=== PATIENT | female | born 1975 | race Caucasian/White ===

== ENCOUNTER 2023-10-17 13:06 | Emergency (ER) | payer OTHER, SELFPAY ==
[2023-10-17 13:10] VITALS: BP 116/80
[2023-10-17 13:25] VITALS: BMI 27.4
--- NOTE | 2023-10-17 13:28 | ED.SKININJ ---
HPI-Injury
General
Chief Complaint: Skin Problem
Source: patient
Exam Limitations: none
Time Seen by Provider: 10/17/23 13:21
Nursing documentation reviewed up to this point in time: agreed with
History of Present Illness-Injury
Is this injury a work related problem?: No
Is pt an associate of [facility]/Energy?: No
Initial Injury comments:
Patient to ED with complaint of poison huan to face, arms, legs, trunk x 24 hours. States OTC meds never work for her. Brought self to ED for eval.
Past History
Past History
ED Past Medical History: None
ED Past Surgical History: None
Social History
Tobacco: Non-smoker
Review of Systems
Review of Systems
Allergies reviewed?: Yes
All Other Systems: ROS reviewed and negative except as documented in HPI and ROS
Constitutional: Reports no symptoms
Musculoskeletal: Reports no symptoms
Skin: Reports other (generalized poison huan)
Neurological: Reports no symptoms
Psychiatric: Reports no symptoms
Phy Exam
General Physical Exam
General Presentation: well appearing and no apparent distress
General age: appears stated age
General Skin: warm and dry
General Habitus: normal
Musculoskeletal Exam
Musculoskeletal Exam: full ROM
Skin Exam
Skin Exam: other (pruritic vesicles in linear presentation to face, trunk arms and legs consistent with contact dermatitis)
Psychiatric Exam
Psychiatric Exam: normal mood/affect
Course
Orders/Labs/Results
Orders:
Orders
10/17/23 13:26
Dexamethasone Pf [Decadron] 10 mg PO NOW STA
Vital Signs
Initial and Last Documented VS:
Initial Vital Signs
Temp Pulse Resp BP Pulse Ox
99.6 F 89 18 116/80 98
10/17/23 13:10 10/17/23 13:10 10/17/23 13:10 10/17/23 13:10 10/17/23 13:10
Last Documented Vital Signs
Temp Pulse Resp BP Pulse Ox
99.6 F 89 18 116/80 98
10/17/23 13:10 10/17/23 13:10 10/17/23 13:10 10/17/23 13:10 10/17/23 13:10
*Critical Care Note
Total Time (30-74mins, 75-104mins- exclusive of procedures): Not Applicable
ED Attending Note
-
Portions of this chart may have been created with voice recognition software.� Occasional wrong word or��sound alike� substitutions may have occurred due to the inherent limitations of voice recognition software.
Discharge Plan
Departure
Patient Disposition: Home (Routine Discharge)
Date of Disposition: 10/17/23
Time of Disposition: 13:26
Patient with high blood pressure during this ER visit?: No
Condition: Good
Covid-19: Not Applicable
Discharge Problem:
Contact dermatitis
Instructions: Contact dermatitis
Prescriptions:
New
prednisone 10 mg Tablet
See Rx Instructions .ROUTE .COMPLEX Qty: 30 0RF
Rx Instructions:
Take By Mouth:
40 mg daily x3 days, 30 mg daily x3 days,
20 mg daily x3 days, 10 mg daily x3 days.
No Action
fluconazole 200 MG tablet
400 mg PO DAILY Qty: 42 0RF
hydroxyzine pamoate [Vistaril] 25 MG capsule
25 mg PO Q6H PRN (Reason: itching) Qty: 30 0RF
celecoxib 100 MG capsule
100 mg PO BID Qty: 14 0RF
Activity Restrictions/Additional Instructions:
Follow up with your family doctor
Interventions
Interventions:
*Risk Screen - Suicide Last Done: 10/17/23 13:24
*General Assessment Last Done: 10/17/23 13:25
*Neglect/Abuse Screening Last Done: 10/17/23 13:24
ED- Fall Risk Assessment Last Done: 10/17/23 13:26
*ED COVID-19 Vaccine History Last Done: 10/17/23 13:25
ED-Skin Assessment Last Done: 10/17/23 13:24
Discharge Date and Time
Print Language: [id number]
[2023-10-17] MEDS: DECADRON 10 MG PO (13:34)
== END 2023-10-17 13:39 | disposition home or self-care (01) ==
LOC: EMR 13:06
PROVIDERS: EMERGENCY PHYSICIAN Emergency Medicine
DX: L25.9 Unspecified contact dermatitis, unspecified cause (principal)
CPT/HCPCS: 99283

== ENCOUNTER 2023-10-23 16:28 | Emergency (ER) | payer OTHER, SELFPAY ==
[2023-10-23 16:40] VITALS: BP 111/78
[2023-10-23 16:57] LABS: % Basophils 0.7 % (0-2); % Eosinophils 1.6 % (0-6); % Immature Granulocytes 0.3 % (0-0.5); % Lymphocytes 29.2 % (20.5-51.1); % Monocytes 5.6 % (1.7-9.3); % Neutrophils 62.6 % (42.2-75.2); Absolute Basophils 0.1 10^3/uL (0-0.2); Absolute Eosinophils 0.2 10^3/uL (0-0.7); Absolute Lymphocytes 3.4 10^3/uL (1.2-3.4); Absolute Monocytes 0.7 10^3/uL (0.1-0.6); Absolute Neutrophils 7.4 10^3/uL (1.4-6.5); Hematocrit 40.9 % (37.0-47.0); Hemoglobin 14.6 g/dL (12.0-16.0); Mean Corp Hgb Conc. 35.7 g/dL (33.0-37.0); Mean Corpuscular Hgb 31.9 pg (27.0-31.0); Mean Corpuscular Volume 89.5 fL (81.0-99.0); Mean Platelet Volume 9.2 fL (7.4-10.4); Nucleated Red Blood Cells % 0 %; Platelet Count 260 10^3/uL (130-400); Red Blood Cell Count 4.57 10^6/uL (4.20-5.40); White Blood Cell Count 11.8 10^3/uL (4.8-10.8)
[2023-10-23 17:09] LABS: APTT 23.3 Sec (23.4-35.0)
[2023-10-23 17:18] LABS: ALT (SGPT) 23 U/L (0-35); AST (SGOT) 24 U/L (14-36); Albumin 4.7 g/dl (3.5-5.0); Alkaline Phosphatase 49 U/L (38-126); Blood Urea Nitrogen 18 mg/dl (7-17); Calcium 9.9 mg/dl (8.4-10.2); Carbon Dioxide 23 mmol/L (22-30); Chloride 104 mmol/L (98-107); Glucose 103 mg/dl (70-99); Potassium 3.7 mmol/L (3.5-5.1); Sodium 137 mmol/L (135-145); Total Protein 7.1 g/dl (6.3-8.2); eGFR > 60.00
[2023-10-23 17:34] VITALS: BMI 28.2
[2023-10-23 18:27] VITALS: BP 97/72
[2023-10-23 19:00] VITALS: BP 113/71
--- NOTE | 2023-10-23 19:27 | ED.GENMED ---
History of Present Illness
General
Chief Complaint: Extremity Pain (non-traumatic)
Source: patient
Exam Limitations: none
Time Seen by Provider: 10/23/23 17:17
Nursing documentation reviewed up to this point in time: agreed with
History of Present Illness
History of Present Illness:
47-year-old female past medical history of PE presenting to the emergency department today with concerns of right leg swelling and redness. Mainly on the right anterior thigh denies specific trauma to the area denies fevers or systemic symptoms.
No chest pain not currently anticoagulated
Past History
Past History
ED Past Medical History: None
ED Past Surgical History: None
Social History
Tobacco: Non-smoker
Review of Systems
Review of Systems
Allergies reviewed?: Yes
All Other Systems: ROS reviewed and negative except as documented in HPI and ROS
Phy Exam
Physical Exam
Physical Exam:
GENERAL: Alert , in no apparent distress
EYE: pupils equal and reactive
NECK: Supple, no significant adenopathy.
ENT: o/p clr, mmm.
CARDIAC: Regular rate and rhythm .
LUNGS: Clear breath sounds bilaterally, no acute respiratory distress, no wheezes/rales/rhonchi
ABDOMEN: Soft, without focal tenderness, no r/g, no cvat
NEUROLOGICAL: Alert and oriented, no focal neuro deficits
SKIN: Area of superficial redness mild tenderness palpation through the right anterior thigh roughly 5 cm in diameter. Good range of motion and strength of the knee ankle. Normal distal pulses warm and dry, skin intact.
MUSCULOSKELETAL: No edema, well perfused.
PSYCH: Normal and appropriate interaction.
Course
Orders/Labs/Results
Orders:
Orders
10/23/23 16:45
US Legs, Right [US Periph Venous LOWER Ext RT] Urgent
Comment:
Reason For Exam: pain swelling
10/23/23 16:52
CMP [Comprehensive Metabolic Panel] Urgent
Complete Blood Count/With Diff Urgent
PTT Urgent
10/23/23 19:17
Cephalexin Monohydrate [Keflex] 500 mg PO NOW STA
Abnormal Lab Results
10/23/23
16:52
WBC 11.8 H 10^3/uL
(4.8-10.8)
MCH 31.9 H pg
(27.0-31.0)
Absolute Neuts (auto) 7.4 H 10^3/uL
(1.4-6.5)
Absolute Monos (auto) 0.7 H 10^3/uL
(0.1-0.6)
APTT 23.3 L Sec
(23.4-35.0)
BUN 18 H mg/dl
(7-17)
Glucose 103 H mg/dl
(70-99)
10/23/23 16:52
10/23/23 16:52
Vital Signs
Initial and Last Documented VS:
Initial Vital Signs
Temp Pulse Resp BP Pulse Ox
98.9 F 104 16 111/78 98
10/23/23 16:40 10/23/23 16:40 10/23/23 16:40 10/23/23 16:40 10/23/23 16:40
Last Documented Vital Signs
Temp Pulse Resp BP Pulse Ox
98.9 F 80 14 113/71 98
10/23/23 16:40 10/23/23 19:45 10/23/23 19:45 10/23/23 19:00 10/23/23 19:45
MDM/Problems Addressed
MDM/Problems Addressed:
47-year-old female presenting to the emergency department today with concerns of redness swelling discomfort to the right anterior thigh. Ultrasound performed showing superficial thrombophlebitis. No evidence of DVT. Patient was concerned of
potential cellulitis to the area it is red and warm though more likely be secondary to the superficial thrombophlebitis but cannot fully rule out infectious component patient started on antibiotics otherwise stable for outpatient management and
close primary care follow-up.
*Critical Care Note
Total Time (30-74mins, 75-104mins- exclusive of procedures): Not Applicable
ED Attending Note
-
Portions of this chart may have been created with voice recognition software.� Occasional wrong word or��sound alike� substitutions may have occurred due to the inherent limitations of voice recognition software.
Discharge Plan
Departure
Patient Disposition: Home (Routine Discharge)
Date of Disposition: 10/23/23
Time of Disposition: 19:27
Patient with high blood pressure during this ER visit?: No
Condition: Good
Covid-19: Not Applicable
Discharge Problem:
Superficial thrombophlebitis, Cellulitis
Instructions: Superficial vein phlebitis and thrombosis
Prescriptions:
New
cephalexin 500 mg capsule
500 mg PO QID 5 Days Qty: 20 0RF
No Action
fluconazole 200 MG tablet
400 mg PO DAILY Qty: 42 0RF
hydroxyzine pamoate [Vistaril] 25 MG capsule
25 mg PO Q6H PRN (Reason: itching) Qty: 30 0RF
celecoxib 100 MG capsule
100 mg PO BID Qty: 14 0RF
prednisone 10 mg Tablet
See Rx Instructions .ROUTE .COMPLEX Qty: 30 0RF
Rx Instructions:
Take By Mouth:
40 mg daily x3 days, 30 mg daily x3 days,
20 mg daily x3 days, 10 mg daily x3 days.
Referrals:
NONE,* [Family Provider] -
Activity Restrictions/Additional Instructions:
You came to the emergency department today with concerns of swelling and redness to the right leg. You had an ultrasound that did not show DVT but did show a superficial thrombophlebitis. This is treated with warm compresses. The redness and
swelling is difficult to differentiate from an infection. Please flex 4 times daily for the next 5 days and otherwise follow close with the primary care doctor for reassessment in the next few weeks. Return to the emergency department any
worsening, new or concerning symptoms.
Interventions
Interventions:
*Risk Screen - Suicide Last Done: 10/23/23 17:33
*General Assessment Last Done: 10/23/23 17:33
*Neglect/Abuse Screening Last Done: 10/23/23 17:33
ED- Fall Risk Assessment Last Done: 10/23/23 17:45
*ED COVID-19 Vaccine History Last Done: 10/23/23 16:40
*Nursing Disposition Last Done: 10/23/23 20:01
ED-Skin Assessment Last Done: 10/23/23 17:45
ED-Peripheral Vascular Assessment Last Done: 10/23/23 17:45
ED-Musculoskeletal Assessment Last Done: 10/23/23 17:45
Discharge Date and Time
Discharge Date/Time: 10/23/23 20:02
Print Language: [id number]
[2023-10-23] MEDS: KEFLEX 500 MG PO (19:42)
== END 2023-10-23 20:02 | disposition home or self-care (01) ==
LOC: EMR 16:28
PROVIDERS: EMERGENCY PHYSICIAN Emergency Medicine
DX: I80.9 Phlebitis and thrombophlebitis of unspecified site (principal); L03.90 Cellulitis, unspecified; Z86.711 Personal history of pulmonary embolism
CPT/HCPCS: 99283; 80053; 85025; 85730; 93971